=== PATIENT | male | born 2000 | race African-American/Black ===

== ENCOUNTER 2021-02-02 02:48 | Emergency (ER) | payer OTHER ==
[2021-02-02 03:32] VITALS: BP 155/73; PULSE 79; TEMP 98.3; BMI 25.0
[2021-02-02 04:55] LABS: HEMATOCRIT 46.4 % (35.4-49); HEMOGLOBIN 15.5 GM/dL (11.7-16.9); MCH 30.9 pg (25.7-33.7); MCHC 33.5 g/dl (32.0-35.9); MEAN CELL VOLUME 92.2 fl (80-96); MEAN PLT VOLUME 8.3 fl (7.5-11.1); PLATELET COUNT 217 10^3/uL (134-434); RBC 5.03 M/mm3 (4.00-5.60); RDW 13.7 % (11.9-15.9); WHITE BLOOD COUNT 5.2 K/mm3 (4.0-10.0)
[2021-02-02 05:02] LABS: PH,URINE 5.5 (5.0-8.0); URINE APPEARANCE CLEAR; URINE BILIRUBIN NEGATIVE (NEGATIVE); URINE COLOR YELLOW; URINE GLUCOSE (UA) NEGATIVE (NEGATIVE); URINE KETONE NEGATIVE (NEGATIVE); URINE LEUK ESTERASE NEGATIVE (NEGATIVE); URINE NITRITE NEGATIVE (NEGATIVE); URINE PROTEIN NEGATIVE (NEGATIVE); URINE UROBILINOGEN 0.2 mg/dL (0.2-1.0)
[2021-02-02 05:26] LABS: ALBUMIN 4.2 g/dl (3.4-5.0); BLOOD UREA NITROGEN 14.6 mg/dL (7-18); CALCIUM 9.3 mg/dL (8.5-10.1)
[2021-02-02 05:29] LABS: CREATININE 1.1 mg/dL (0.55-1.3)
[2021-02-02 05:31] LABS: BILIRUBIN,TOTAL 0.4 mg/dL (0.2-1); TOT PROT 7.3 g/dl (6.4-8.2)
[2021-02-02] MEDS ORDERED: KETOROLAC TROMETHAMINE 30 MG/1 ML VIAL IVPUSH ONE (05:36)
[2021-02-02] MEDS ORDERED: SODIUM CHLORIDE 1,000 ML IV STA (05:37)
[2021-02-02] MEDS ORDERED: KETOROLAC TROMETHAMINE 30 MG/1 ML VIAL ONE (05:39)
[2021-02-02] MEDS ORDERED: TAMSULOSIN HCL 0.4 MG CAP PO ONE (05:41)
[2021-02-02] MEDS ORDERED: TAMSULOSIN HCL 0.4 MG CAP ONE (05:42)
[2021-02-02 06:06] LABS: ANISOCYTOSIS 1+; MACROCYTOSIS 0; PLATELET ESTIMATE NORMAL; TEAR DROP CELLS 1+
[2021-02-03 14:07] LABS: SARS-CoV-2 NAA Not Detected (Not Detected)
== END 2021-02-02 06:41 | disposition home or self-care (01) ==
LOC: JER 02:48
PROC: 3E033GC Introduction of Other Therapeutic Substance into Peripheral Vein, Percutaneous Approach (ICD-10-PCS; principal; 2021-02-02)
DX: N50.811 Right testicular pain (principal)
CPT/HCPCS: 36415; 74176-TC; 76870-TC; 80053; 81003; 85025; 87086; 87491; 87591; 99285-25; C9803; U0003; U0005